=== PATIENT | male | born 1990 | race African-American/Black ===

== ENCOUNTER 2020-01-27 15:30 | Emergency (ER) | payer MEDICAID, MEDICARE, OTHER ==
[~2020-01-27] VITALS: Ht 182.9 cm; Wt 85.0 kg
[~2020-01-27 15:30] MED LIST: FERR-63 PO; OMEP20CA14 PO; SUCR1TAB PO
[2020-01-27] MEDS ORDERED: CEFTRIAXONE SODIUM 250 MG/VIAL IM ONE ×2 (17:45→18:00)
[2020-01-27] MEDS ORDERED: AZITHROMYCIN 500 MG TABLET PO ONE ×2 (17:45→18:00)
[2020-01-27] MEDS ORDERED: PANTOPRAZOLE SODIUM 40 MG/VIAL IV STA (17:47)
[2020-01-27] MEDS ORDERED: SODIUM CHLORIDE 0.9% 1,000 ML IV ONE (17:47)
[2020-01-27 18:31] LABS: BASOPHILS % 0.9 % (0.0-2.0); EOSINOPHILS % 0.4 % (0.0-5.0); HEMATOCRIT. 47.5 % (42.0-52.0); HEMOGLOBIN. 15.7 g/dL (14.0-18.0); LYMPHOCYTES % 31.9 % (20.0-50.0); MEAN CORPUSCULAR VOLUME 84.4 fL (80.0-94.0); MEAN PLATELET VOLUME 8.2 fl (7.4-10.4); MONOCYTES % 5.4 % (2.0-8.0); NEUTROPHILS % 61.4 % (40.0-76.0); PLATELET 183 x1000/uL (130-400); RED BLOOD CELL COUNT 5.62 mill/uL (4.7-6.1); RED CELL DISTRIBUTION WIDTH 15.3 % (11.6-14.6)
[2020-01-27 18:58] LABS: CHLORIDE 109 mEq/L (98-107)
[2020-01-27 19:00] VITALS: BP 120/78
[2020-01-27 19:19] LABS: *AMPHETAMINES SCREEN URINE NEGATIVE (NEGATIVE); *BARBITURATES SCREEN URINE NEGATIVE (NEGATIVE); *BENZODIAZEPINES SCREEN URINE NEGATIVE (NEGATIVE); *COCAINE SCREEN URINE PRESUMTIVE POSITIVE (NEGATIVE); CANNABINOID URINE SCREEN PRESUMTIVE POSITIVE (NEGATIVE); METHADONE URINE SCREEN NEGATIVE (NEGATIVE); OPIATES URINE SCREEN NEGATIVE (NEGATIVE); PHENCYCLIDINE URINE SCREEN NEGATIVE (NEGATIVE)
[2020-02-01 04:07] LABS: NEISSERIA GONORRHOEAE NAA Negative (Negative)
== END 2020-01-27 19:59 | disposition home or self-care (01) ==
LOC: ER 15:30
DX: Z20.2 Contact with and (suspected) exposure to infections with a predominantly sexual mode of transmission (principal); K62.5 Hemorrhage of anus and rectum
CPT/HCPCS: 36415; 80053; 80305; 83690; 85025; 87491; 87591; 96372; 96374; 99284; C9113; J0696; J7030

== ENCOUNTER 2020-11-17 22:10 | Emergency (ER) | payer MEDICAID, OTHER ==
[~2020-11-17] VITALS: Ht 185.4 cm; Wt 77.0 kg
[2020-11-17] MEDS ORDERED: KETOROLAC 30MG/ML VIAL IM ONE (23:00)
[2020-11-17] MEDS ORDERED: NAPR-420 MT (23:01)
[2020-11-17 23:45] VITALS: BP 129/74
== END 2020-11-17 23:45 | disposition home or self-care (01) ==
LOC: ER 22:10
DX: S46.911A Strain of unspecified muscle, fascia and tendon at shoulder and upper arm level, right arm, initial encounter (principal); Z79.899 Other long term (current) drug therapy; Z98.890 Other specified postprocedural states; X58.XXXA Exposure to other specified factors, initial encounter; Y93.89 Activity, other specified; Y92.89 Other specified places as the place of occurrence of the external cause; Y99.8 Other external cause status
CPT/HCPCS: 96372; 99283; J1885